=== PATIENT | female | born 2005 | race Caucasian/White ===

== ENCOUNTER 2024-08-04 10:05 | Day surgery (SDC) | payer MEDICAID ==
[~2024-08-04] VITALS: Ht 162.6 cm; Wt 50.0 kg
[~2024-08-04 10:05] MED LIST: LR 1,000 ML IV SCH; Ondansetron 4 MG/2 ML VIAL IV PRN
[2024-08-04] MEDS ORDERED: Lidocaine PF 2% (20 MG/ML) 5 ML VIAL ONE (11:13)
[2024-08-04] MEDS ORDERED: Glycopyrrolate 0.2 MG/ML 1 ML VIAL ONE (11:31)
[2024-08-04 11:54] VITALS: BP 112/71; PULSE 43; TEMP 97.8
[2024-08-04 12:05] VITALS: BP 114/81; PULSE 86; TEMP 97.5
[2024-08-04 12:20] VITALS: BP 109/79; PULSE 72
[2024-08-04 12:35] VITALS: BP 123/77; PULSE 76
--- NOTE | 2024-08-04 12:55 | NUR ---
1205 RETURNS TO ROOM 5 PER CART. AWAKE, ALERT. RESP UNLABORED. AMBULATES TO RECLINER WITH STANDBY ASSIST. DENIES NAUSEA, ABD/CHEST PAIN OR DYSPHAGIA. VITAL SIGNS OBTAINED. CALL LIGHT AT SIDE. SISTER IN ROOM 1220 TOLERATES PO SODA WITHOUT NAUSEA. SWALLOWS WITHOUT DIFFICULTY. 1240 DR. BESS HERE TO VISIT WITH PATIENT 1245 DISCHARGE INSTRUCTIONS REVIEWED. PATIENT VERBALIZES UNDERSTANDING. COPY PROVIDED IN DISCHARGE FOLDER
== END 2024-08-04 12:57 | disposition home or self-care (01) ==
LOC: SDCO 10:05
DX: K21.00 Gastro-esophageal reflux disease with esophagitis, without bleeding (principal); K31.89 Other diseases of stomach and duodenum; R63.4 Abnormal weight loss; D64.9 Anemia, unspecified; K62.89 Other specified diseases of anus and rectum; R19.5 Other fecal abnormalities; F17.210 Nicotine dependence, cigarettes, uncomplicated; Z79.899 Other long term (current) drug therapy; Z79.1 Long term (current) use of non-steroidal anti-inflammatories (NSAID)
CPT/HCPCS: J2704; J7120